=== PATIENT | male | born 1965 | race Caucasian/White ===

== ENCOUNTER → 2020-03-10 | Outpatient (CLI) | payer BC, SELFPAY ==
--- NOTE | 2020-03-10 16:55 | CT_ITS ---
STUDY: CT MAXILLOFACIAL SINUSES REASON FOR EXAM: Male, 55 years old. NASAL POLYPS, SINUSITIS RADIATION DOSAGE (If Supplied By Facility): CTDIvol = ( 33.06 ) mGy, DLP = ( 809.06 ) mGycm TECHNIQUE: The patient was scanned in a multi detector CT scanner. High resolution axial imaging was performed without the administration of intravenous contrast material. Sagittal and coronal images were reconstructed. Individualized dose optimization techniques were used for this CT. COMPARISON: None. FINDINGS: FRONTAL SINUSES: There is mildly coastal thickening of the left and right frontal sinuses. ETHMOIDAL SINUSES: There is mucosal thickening and opacification of multiple ethmoid air cells bilaterally. MAXILLARY SINUSES: There is severe mucosal thickening of the left and right maxillary sinuses. SPHENOIDAL SINUSES: There is near-complete opacification of the left sphenoid sinus. A dominant right sphenoid sinus demonstrates moderate mucosal thickening. There is patency of the bilateral maxillary infundibuli with normal uncinate processes, ethmoid bullae, and hiatus semilunaris. There is nasal septal deviation toward the left. The majority of the left middle nasal turbinate is missing. There is mucosal thickening of the superior nasal cavity. The visualized osseous structures are normal. The visualized bilateral orbital contents are normal. CT/Sinus/Facial Bone IMPRESSION: Severe chronic pansinusitis. Nasal septal deviation toward the left. The majority of the left middle nasal turbinate is missing. There is mucosal thickening of the superior nasal cavity which may represent rhinitis versus nasal polyposis. Electronically Signed: Wilfrid Nye MD at 19:32 EDT , Service support ,
== END | disposition home or self-care (01) ==
PROVIDERS: PCP Student in an Organized Health Care Education/Training Program; Referring Provider Otolaryngology; Visit Provider Otolaryngology
DX: J33.9 Nasal polyp, unspecified (principal)
CPT/HCPCS: 70486

== ENCOUNTER 2021-09-15 20:27 | Emergency (ER) | payer BC, SELFPAY ==
[2021-09-15 20:27] VITALS: BP 176/78; PULSE 84; RESP 18; TEMP 36.9; O2SAT 94; BMI 36.9
[2021-09-15 23:10] VITALS: BP 152/72; PULSE 81; RESP 12; O2SAT 100
[2021-09-15 23:15] VITALS: BP 152/72; PULSE 81; RESP 12; TEMP 36.2; O2SAT 100
--- NOTE | 2021-09-15 23:27 | VDLE_ITS ---
Reason For Study: Swelling RIGHT LEFT CFV is compressible, spontaneous, phasic, GSV is normal. competent and demonstrates normal CFV is compressible, spontaneous, phasic, augmentation. competent, and demonstrates normal Procedure augmentation. This is a venous duplex using B-mode, color FV is compressible, spontaneous, phasic, flow and spectral Doppler. competent and demonstrates normal Exam performed portable in ED. augmentation. A preliminary report was called and/or faxed POP V is compressible, spontaneous, phasic, to [facility]. competent and demonstrates normal augmentation. T/P Trunk is compressible. PTV is compressible. LT PerV is compressible. VL/Venous Duplex US, Unilateral Interpretation Summary There is no evidence of left lower extremity deep vein thrombosis. Left great s aphenous vein appears patent and compressible segmentally. Ordering Physician: Aleksey Mills Referring Physician: Ty Chairez Performed By: Vannessa Jimenez RVT
--- NOTE | 2021-09-15 23:27 | ED.VIS.LOWEX ---
HPI <Dr. Aleksey Mills MD - Last Filed: 09/16/21 07:00> History of Present Illness Chief Complaint: Lower Extremity Injury Informant: patient Onset/Context/Timing Onset: Weeks (2) Context: Gradual Onset Timing: Continuous Quality of Pain: - (tight from swelling) Location: LLE Current Severity: Mild Maximum Severity: Mild Worsened by: nothing Relieved by: nothing including cephalexin he has been on for 6d Associated Symptoms Associated Symptoms: Negative for Parasthesia, Weakness and Loss of Funtion Narrative Narrative: Patient presents with worsening swelling and redness in his left lower leg that has been progressively worsening for the past 2 weeks, worse in the past week. Just over 1 week ago he saw a nurse practitioner in his doctor's office who started him on cephalexin. No testing has been performed yet. He denies any chest pain or shortness of breath, no fevers or chills or any other systemic symptoms. States other than the tightness in just mukul swelling in his leg, he feels fine overall. Since starting the antibiotic in the last week, he has since started getting a rash in the medial aspect of the left lower leg redness that has been seeping some clear fluid and is nonpainful. No recent long travel or immobilization/hospitalization/surgery. He had a screening colonoscopy, but it was after this already started. He denies any wounds prior to the onset of the swelling/redness, or obvious nidus for infection or injury. [facility] <Dr. Aleksey Mills MD - Last Filed: 09/16/21 07:00> [facility] Medical History Hypertension Home Medications cephalexin 500 mg PO TID 09/15/21 [History Last Taken Unknown] hydrochlorothiazide 12.5 mg PO DAILY 09/15/21 [History Last Taken Unknown] lisinopril 10 mg PO DAILY 09/15/21 [History Last Taken Unknown] sulfamethoxazole-trimethoprim [Bactrim DS] 1 tab PO BID #20 tab 09/16/21 [Rx Last Taken Unknown] Allergy/AdvReac Type Severity Reaction Status Date / Time No Known Allergies Allergy Verified 09/15/21 23:09 Social History Smoking Status: Unknown if ever smoked ROS <Dr. Aleksey Mills MD - Last Filed: 09/16/21 07:00> ROS ED Constitutional Constitutional ED: Denies chills or fever(s) Musculoskeletal Musculoskeletal: Reports extremity pain; Denies neck pain Integumentary Reports as per HPI, erythema and wounds; Denies Abrasions or rash Neurologic Neurologic: Denies paresthesias or weakness EXAM <Dr. Aleksey Mills MD - Last Filed: 09/16/21 07:00> Physical Exam Const Vital Signs: 09/15/21 20:27 09/15/21 23:10 09/15/21 23:15 Temperature 98.5 F 97.1 F L Temperature Source Oral Temporal Pulse Rate 84 81 81 Respiratory Rate 18 12 12 Blood Pressure 176/78 H 152/72 H 152/72 H Blood Pressure Mean 110 98 98 Pulse Ox 94 100 100 Oxygen Delivery Method Room Air Room Air Room Air 09/16/21 00:00 09/16/21 01:22 09/16/21 06:09 Temperature 98 F Temperature Source Temporal Pulse Rate 84 80 Respiratory Rate 16 16 Blood Pressure 130/69 H 126/62 H 116/69 Blood Pressure Mean 89 83 84 Pulse Ox 98 99 Oxygen Delivery Method Room Air Room Air Positive well nourished and well developed General Appearance ED: well developed and NAD Neck full ROM and supple Back/Spine normal ROM and normal to inspection Extremity Extremity Narrative: Very swollen left lower leg, also erythematous. It is nontender. There is a superficial broad-based wound approximately 8 cm in diameter at the medial aspect of the left mid lower leg where there is some bulla formation, and the couple ruptured bullae with epidermal sloughing and clear fluid seeping from these areas, none of which is tender. Well-perfused distally. No palpable cords. Possible varicose veins noted but it does not appear to be bad. No problems moving the ankle and knee, no abnormal skin at the knee or proximal, the erythema distal to this is stocking glove in distribution, and does not affect the foot. Lower leg compartments are distended but soft. The right lower leg is normal. Neuro oriented x3, no focal motor deficits and no sensory deficits noted Sensorium / Orientation: alert Psych mental status grossly normal and thought process normal Skin Skin Narrative: See extremity exam above with regards to the left lower leg. No other rashes. <DO Raghav Anaya Last Filed: 09/16/21 09:02> Physical Exam Const Vital Signs: 09/15/21 20:27 09/15/21 23:10 09/15/21 23:15 Temperature 98.5 F 97.1 F L Temperature Source Oral Temporal Pulse Rate 84 81 81 Respiratory Rate 18 12 12 Blood Pressure 176/78 H 152/72 H 152/72 H Blood Pressure Mean 110 98 98 Pulse Ox 94 100 100 Oxygen Delivery Method Room Air Room Air Room Air 09/16/21 00:00 09/16/21 01:22 09/16/21 06:09 Temperature 98 F Temperature Source Temporal Pulse Rate 84 80 Respiratory Rate 16 16 Blood Pressure 130/69 H 126/62 H 116/69 Blood Pressure Mean 89 83 84 Pulse Ox 98 99 Oxygen Delivery Method Room Air Room Air MDM <Dr. Aleksey Mills MD - Last Filed: 09/16/21 07:00> MDM MDM Narrative Medical decision making narrative: Soon as I evaluated patient I saw to obtain a duplex Doppler ultrasound of the left lower extremity, however they are no longer performing this test today and it is not currently available. Therefore, a D-dimer was added onto his basic labs as well as empiric antibiotics. I think the differential does include a DVT as well as cellulitis, however the appearance of the skin is more likely to be cellulitis, so I will start him on vancomycin empirically as a possible failure of outpatient treatment, in addition to giving him an injection of Lovenox for empiric coverage for venous thromboembolism. Results show very elevated D-dimer suspicious for DVT. He does not have a leukocytosis although that does not rule out cellulitis, he really is not having any significant pain or tenderness. Therefore my thoughts are that if he does not have an acute DVT, he should be admitted for IV antibiotics and failure of outpatient therapy, however if he does have a DVT he can probably be sent home on anticoagulant to follow-up closely. We do not offer this test throughout the shift mechanic. If he got the study as an outpatient, he would need to return to the ER regardless of the results, so I advised that he sleep here in the ED all night under observation until ultrasound was available in the morning, and then he would not have to return for second visit he was amenable to that. Lab Data Labs: Laboratory Results - last 24 hr 09/15/21 09/15/2121 23:30 23:30 23:30 WBC 6.1 RBC 3.84 L Hgb 12.8 L Hct 36.1 L MCV 94.0 MCH 33.3 H MCHC 35.5 RDW Std Deviation 37.2 RDW Coeff of Magalie 10.9 L Plt Count 368 MPV 8.5 Immature Gran % (Auto) 4.600 H Neut % (Auto) 56.9 Lymph % (Auto) 24.4 Cataño % (Auto) 10.8 H Eos % (Auto) 2.5 Baso % (Auto) 0.8 Absolute Neuts (auto) 3.5 Absolute Lymphs (auto) 1.49 Nucleated RBC % 0 D-Dimer Quant (PE/DVT) 10.38 H* Sodium 126 L Potassium 3.8 Chloride 87 L Carbon Dioxide 29.0 Anion Gap 10 BUN 11 Creatinine 0.98 Estim Creat Clear Calc 91.28 Est GFR (MDRD) Af Amer 101 Est GFR (MDRD) Non-Af 83 BUN/Creatinine Ratio 11.2 Glucose 105 Calcium 9.0 <Dr. Soren Mora, DO - Last Filed: 09/16/21 09:02> [facility] MDM Narrative Medical decision making narrative: Patient signed out to me for follow-up on duplex of the left lower extremity given the swelling in the left calf. There is some erythema medially with some dry scaling skin. There is no lymphangitic streaking. Patient has had no systemic signs or symptoms. He has been on Keflex 3 times daily from his primary care physician and notes that it is not improving. Ultimately his blood work does not show that he has an elevated white blood cell count. He does not have a left shift. His BMP is abnormal in the sense that he has a low sodium and a low chloride but he is not having any symptoms of hyponatremia. Discussed with Dr. Nathan as the patient likely has cellulitis of the lower extremity and is failed outpatient antibiotics however he declines admission. He recommends placing the patient on Bactrim and having him quit his hydrochlorothiazide as this is likely source of his low sodium and chloride. I spoke with Dr. Chairez his primary care physician who agreed that the patient should finish his Keflex and take Bactrim. Since his DVT study is normal he does not need to be anticoagulated. He made an appointment for him to be followed up on 09/23/2021 at 10:30 AM. Patient was previously given a dose of IV vancomycin in the emergency room. Patient was informed he will need to make his appointment. Patient is amenable to this discharge plan. He is given return precautions. Impression: 1. Right lower extremity cellulitis Lab Data Attestation: I reviewed the patient's lab results. Labs: Laboratory Results - last 24 hr 09/15/21 09/15/21 09/15/21 23:30 23:30 23:30 WBC 6.1 RBC 3.84 L Hgb 12.8 L Hct 36.1 L MCV 94.0 MCH 33.3 H MCHC 35.5 RDW Std Deviation 37.2 RDW Coeff of Magalie 10.9 L Plt Count 368 MPV 8.5 Immature Gran % (Auto) 4.600 H Neut % (Auto) 56.9 Lymph % (Auto) 24.4 Cataño % (Auto) 10.8 H Eos % (Auto) 2.5 Baso % (Auto) 0.8 Absolute Neuts (auto) 3.5 Absolute Lymphs (auto) 1.49 Nucleated RBC % 0 D-Dimer Quant (PE/DVT) 10.38 H* Sodium 126 L Potassium 3.8 Chloride 87 L Carbon Dioxide 29.0 Anion Gap 10 BUN 11 Creatinine 0.98 Estim Creat Clear Calc 91.28 Est GFR (MDRD) Af Amer 101 Est GFR (MDRD) Non-Af 83 BUN/Creatinine Ratio 11.2 Glucose 105 Calcium 9.0 Discharge Plan Triage Chief Complaint: Lower Extremity Injury ED Provider: Aleksey Mills Dx/Rx/DC Orders Instructions: ED Cellulitis Prescriptions: New sulfamethoxazole-trimethoprim [Bactrim DS] 800-160 mg tablet 1 tab PO BID Qty: 20 RF: 0 No Action cephalexin 500 mg capsule 500 mg PO TID RF: 0 lisinopril 10 mg tablet 10 mg PO DAILY RF: 0 hydrochlorothiazide 12.5 mg tablet 12.5 mg PO DAILY RF: 0 Primary Care Provider: Ty Chariez Referrals: Ty Chairez DO [Primary Care Provider] - Activity Restrictions/Additional Instructions: I spoke with Dr. Chairez who recommended putting him on Bactrim twice a day. He wants you to call his office and set up an appointment for 10:30 AM on 09/23/2021. He recommends that you discontinue your hydrochlorothiazide given your low sodium. Disposition Disposition: Home, Self Care
[2021-09-15 23:50] LABS: Absolute Lymphocyte Count 1.49 X10^3/uL (0.83-4.51); Absolute Neutrophil Count 3.5 X10^3/uL (2.0-7.7); Basophil# 0.05 X10^3/uL; Basophil% 0.8 % (0-1); Eosinophil# 0.15 X10^3/uL; Eosinophils% 2.5 % (0-5); Hematocrit 36.1 % (40-54); Hemoglobin 12.8 g/dL (13.0-16.5); Lymphocyte # 1.49 X10^3/ul (0.83-4.51); Lymphocyte % 24.4 % (19-41); Mean Corp Hgb Conc 35.5 g/dL (32-36); Mean Corpuscular Hgb 33.3 pg (27.0-32.0); Mean Platelet Vol. 8.5 fl (6.2-12.0); Monocyte# 0.66 X10^3/uL; Monocyte% 10.8 % (0-10); NRBC Flagged by Analyzer 0 % (0-5); Neutrophil # 3.47 X10^3/uL (2.7-7.7); Neutrophil % 56.9 % (47-70); Platelet Count 368 K/mm3 (150-450); RBC Distribution Width CV 10.9 % (11.6-14.6); RBC Distribution Width SD 37.2 fl (35.1-43.9); Red Blood Count 3.84 M/mm3 (4.6-6.2); White Blood Count 6.1 K/mm3 (4.4-11.0)
[2021-09-16] VITALS: BP 130/69; PULSE 84; RESP 16; TEMP 36.6; O2SAT 98
[2021-09-16] MEDS: Enoxaparin 120 MG/0.8 ML Syringe SC (00:03)
[2021-09-16 00:10] LABS: Anion Gap 10 (5-15); BUN 11 mg/dL (7-18); BUN/Creat Ratio 11.2 RATIO (10-20); Chloride 87 mmol/L (98-107); Creatinine, Serum 0.98 mg/dL (0.70-1.30); EST Glomerular Filtration Rate 83 mL/min (>60); Est Glom Filt Rate - Afr Amer 101 mL/min (>60); Estimated Creatinine Clearance 91.28 ml/min; Glucose 105 mg/dL (74-106); Potassium 3.8 mmol/L (3.5-5.1); Sodium Level 126 mmol/L (136-145)
[2021-09-16 00:26] LABS: D-Dimer Quantitative (DVT/PE) 10.38 FEU/ug/m (0.27-0.49)
[2021-09-16 01:22] VITALS: BP 126/62
[2021-09-16 06:09] VITALS: BP 116/69; PULSE 80; RESP 16; O2SAT 99
[2021-09-16 09:04] VITALS: BP 134/77; PULSE 62; RESP 15; O2SAT 98
== END 2021-09-16 09:06 | disposition home or self-care (01) ==
PROVIDERS: Emergency Provider Emergency Medicine; PCP Student in an Organized Health Care Education/Training Program
DX: L03.115 Cellulitis of right lower limb (principal); I10 Essential (primary) hypertension; Z79.899 Other long term (current) drug therapy
CPT/HCPCS: 80048; 85025; 85379; 93971; 96365; 96366; 96372; 99283; J7040; J7050; A4216

== ENCOUNTER 2024-02-15 16:41 | Inpatient (IN) | payer BC, SELFPAY ==
[2024-02-15] VITALS (27 sets, daily range): BP systolic 140–200; BP diastolic 78–102; PULSE 58–98; RESP 12–23; TEMP 36.3–36.6; O2SAT 96–99; BMI 35.6
--- NOTE | 2024-02-15 18:14 | ED.VIS.CHEST ---
HPI History of Present Illness Chief Complaint: Back Detail of Chief Complaint: 10 episodes of intrascapular muscle burning sensation with radiation to the Informant: patient Onset/Context/Timing Onset: Days (First episode Sunday. He had a total of 10 episodes) Activity at onset: sudden and light activity (After walking approximately 150 steps or approximately 150 yards.) Timing: Intermittent Quality: Positive for Burning Location: - (Intrascapular radiates anteriorly to his neck and jaw bilaterally) Current Severity: Gone Maximum Severity: Moderate Worsened By: Exertion Relieved By: Rest (Is gone after 10 minutes) Associated Symptoms: Negative for Nausea, Vomiting, Diaphoresis, Dyspnea, Cough, Fever, Lightheadedness, Acid Reflux or Palpitations Narrative Narrative: Patient is a 59-year-old male. He has history of hypertension. Since Sunday he is had 10 episodes of discomfort described as a burning sensation as if he was doing a bench press between his shoulder blades and achy muscles that radiates to his neck anteriorly and jaw bilaterally. There is no associated symptoms. This last for approximately 10 minutes. He states he sits after he developed the pain and is gone after 10 minutes. He has no associated symptoms. Father had triple bypass surgery at the age of 41. He is on hydrochlorothiazide/lisinopril. He reports compliance with his medication. There is no history of GERD or hiatal hernia. He denies black or maroon stool. He denies history of VTE. He has no risk factors for VTE. Denies leg pain, swelling discoloration. He denies symptoms of claudication. Prior Similar Symptoms: No CVD Risk Factors: Positive for Hypertension and Family History 1' </=55; Negative for Diabetes, Hypercholesterolemia or Smoking PE Risk Factors: Negative for Recent Travel/Surgery, Recent Immobilization, Prior DVT or PE, Cancer or OCP + Smoking + >/=35 TAD Risk Factors: Positive for Hypertension; Negative for Marfan's Syndrome or Family History [facility] Medical History Hypertension Home Medications cyanocobalamin (vitamin B-12) 1,000 mcg tablet (Vitamin B-12) 2,000 mcg PO DAILY 02/15/24 [History Last Taken Unknown] garlic 1,000 mg capsule 2,000 mg PO DAILY 02/15/24 [History Last Taken Unknown] losartan 50 mg tablet 50 mg PO DAILY 02/15/24 [History Last Taken Unknown] omega 2-cyx-kkk-fish oil 1,200 mg (144 mg-216 mg) capsule (Fish Oil) 1 cap PO DAILY 02/15/24 [History Last Taken Unknown] phytosterol 300 mg-pantethine 100 mg capsule (CholestOff Complete) 3 cap PO DAILY 02/15/24 [History Last Taken Unknown] turmeric 400 mg capsule 800 mg PO DAILY 02/15/24 [History Last Taken Unknown] Allergy/AdvReac Type Severity Reaction Status Date / Time No Known Allergies Allergy Verified 02/15/24 16:52 Social History Smoking Status: Unknown if ever smoked ROS ROS ED Constitutional Constitutional ED: Denies chills, fever(s), subjective or sweats Eyes Eyes: Reports none ENT ENT ED: Denies rhinorrhea or sore throat Cardiovascular Cardiovascular: Reports as per HPI; Denies orthopnea or paroxysmal nocturnal dyspnea Respiratory/Chest Respiratory/Chest: Denies cough, dyspnea, dyspnea on exertion, orthopnea or paroxysmal nocturnal dyspnea Gastrointestinal Gastrointestinal: Denies abdominal pain, constipation, diarrhea, melena, nausea or vomiting Musculoskeletal Musculoskeletal: Reports back pain; Denies arthralgias, myalgias or neck pain Integumentary Denies rash Neurologic Neurologic: Denies headache(s) or paresthesias Endocrine Endocrinology: Denies cold intolerance or heat intolerance Hematologic/Lymphatic Hematologic/Lymphatic: Denies easy bleeding or easy bruising EXAM Physical Exam Const Vital Signs: 02/15/24 16:42 02/15/24 16:42 02/15/24 18:28 Temperature 98 F Temperature Source Temporal Pulse Rate 90 98 Respiratory Rate 14 16 Respiratory Effort Respiratory Pattern Blood Pressure 200/99 H 192/87 H Blood Pressure Mean 132 122 Pulse Ox 98 98 Oxygen Delivery Method Room Air Room Air Room Air 02/15/24 18:31 02/15/24 18:42 02/15/24 19:09 Temperature Temperature Source Pulse Rate 78 79 Respiratory Rate 16 16 Respiratory Effort Normal Respiratory Pattern Normal Blood Pressure 186/89 H 196/96 H Blood Pressure Mean 121 129 Pulse Ox 98 99 Oxygen Delivery Method Room Air Room Air 02/15/24 19:26 02/15/24 19:10 02/15/24 19:15 Temperature Temperature Source Pulse Rate 76 77 78 Respiratory Rate 17 22 H 15 Respiratory Effort Respiratory Pattern Blood Pressure 200/82 H Blood Pressure Mean 121 Pulse Ox 99 98 97 Oxygen Delivery Method Room Air 02/15/24 19:25 02/15/24 19:30 02/15/24 19:34 Temperature Temperature Source Pulse Rate 75 78 70 Respiratory Rate 16 15 17 Respiratory Effort Respiratory Pattern Blood Pressure 200/82 H 189/86 H 170/86 H Blood Pressure Mean 112 111 111 Pulse Ox 97 96 97 Oxygen Delivery Method Room Air Room Air 02/15/24 19:45 02/15/24 20:00 02/15/24 20:15 Temperature Temperature Source Pulse Rate 68 75 77 Respiratory Rate 17 14 14 Respiratory Effort Respiratory Pattern Blood Pressure 167/85 H Blood Pressure Mean 109 Pulse Ox 96 98 98 Oxygen Delivery Method Room Air 02/15/24 20:30 02/15/24 20:41 02/15/24 20:45 Temperature Temperature Source Pulse Rate 64 73 63 Respiratory Rate 18 14 14 Respiratory Effort Respiratory Pattern Blood Pressure 173/86 H 165/94 H Blood Pressure Mean 109 113 Pulse Ox 96 97 97 Oxygen Delivery Method Room Air 02/15/24 21:00 02/15/24 21:15 Temperature Temperature Source Pulse Rate 65 61 Respiratory Rate 14 14 Respiratory Effort Respiratory Pattern Blood Pressure 164/92 H 143/82 H Blood Pressure Mean 112 100 Pulse Ox 97 96 Oxygen Delivery Method Room Air Room Air Blood pressure is elevated. Patient states he did take his blood pressure today. Positive well nourished and well developed Constitutional Narrative: BMI is 35.7. General Appearance ED: well developed and NAD; Negative for pallor HEENT Reports moist mucous membranes normocephalic and atraumatic Eyes PERRL and EOMs intact bilaterally General Eye ED: Negative for pale conjunctiva or scleral icterus Neck no lymphadenopathy, supple and no JVD Resp normal respiratory effort and clear to auscultation bilaterally Cardio regular rate, regular rhythm, S1 normal heart sound, S2 normal heart sound and no murmurs GI normal to inspection, nondistended, normoactive bowel sounds, soft to palpation, non-tender and non-distended Back/Spine no CVA tenderness and no thoracic nor lumbar tenderness Extremity normal to inspection Extremity Narrative: There is no asymmetry, swelling, discoloration, leg vein distention, palpable cords or tenderness along the distribution of the deep venous system. General Extremety ED: Negative for edema or pulses abnormal General Extremity: Negative for edema or pulses abnormal Neuro oriented x3 and CN's II-XII intact bilaterally Sensorium / Orientation: awake and alert Psych mental status grossly normal Skin no rashes or lesions noted and no wounds General Skin Exam: Negative for jaundice or pallor Heart Score History: Moderately Suspicious ECG: Significant ST-Depression Age: >45 - <65 years Risk Factors: 1 or 2 Risk Factors Troponin: </= Normal Limit Score: 5 MDM MDM MDM Narrative Medical decision making narrative: Concerned that patient's back pain with patient to the neck that comes on with walking more than 100 feet is due to cardiac angina. Will obtain EKG, chest x-ray and appropriate blood work including troponin and 2-hour troponin. Will monitor blood pressure since is elevated. EKG is not normal. There is no prior EKG for comparison. Doubt this is a aortic dissection since it comes on with activity and goes away with rest. Does not describes a ripping or tearing pain. This could represent strain due to elevated blood pressure since his pressure is high. Lab Data Attestation: I reviewed the patient's lab results. Lab results narrative: CBC reveals elevated MCV otherwise unremarkable. Basic metabolic panel reveals slight elevation of glucose of 110 with normal CO2 anion gap. First troponin is 38. Labs: Laboratory Results - last 24 hr 02/15/24 02/15/24 02/15/24 18:27 18:27 18:59 WBC Cancelled 8.3 Corrected WBC Cancelled RBC Cancelled 4.56 L Hgb Cancelled 15.0 Hct Cancelled 43.9 MCV Cancelled 96.3 H MCH Cancelled 32.9 H MCHC Cancelled 34.2 RDW Std Deviation Cancelled 40.2 RDW Coeff of Magalie Cancelled 11.4 L Plt Count Cancelled 204 MPV Cancelled 8.7 Immature Gran % (Auto) Cancelled 0.400 Neut % (Auto) Cancelled 64.8 Lymph % (Auto) Cancelled 22.3 [place] % (Auto) Cancelled 7.9 Eos % (Auto) Cancelled 4.1 Baso % (Auto) Cancelled 0.5 Absolute Neuts (auto) Cancelled 5.4 Absolute Lymphs (auto) Cancelled 1.84 Total Counted Cancelled Neutrophils % (Manual) Cancelled Band Neutrophils % Cancelled Lymphocytes % (Manual) Cancelled Monocytes % (Manual) Cancelled Eosinophils % (Manual) Cancelled Basophils % (Manual) Cancelled Metamyelocytes % Cancelled Myelocytes % Cancelled Promyelocytes % Cancelled Blast Cells % Cancelled Plasma Cell % (Manual) Cancelled Other Cells % Cancelled Nucleated RBC % Cancelled 0 Nucleated RBCs/100 WBC Cancelled Differential Comment Cancelled Diff Path Review Cancelled Hypersegmented Neuts Cancelled Atypical Lymphocytes Cancelled Reactive Lymphocytes Cancelled Smudge Cells Cancelled Toxic Granulation Cancelled Toxic Vacuolation Cancelled Dohle Bodies Cancelled Brett Rods Cancelled Platelet Estimate Cancelled Plt Morphology Comment Cancelled RBC Morphology Cancelled Cancelled Polychromasia Cancelled Hypochromasia Cancelled Basophilic Stippling Cancelled Anisocytosis Cancelled Microcytosis Cancelled Macrocytosis Cancelled Spherocytes Cancelled Sickle Cells Cancelled Target Cells Cancelled Tear Drop Cells Cancelled Ovalocytes Cancelled Stomatocytes Cancelled [place] Bodies Cancelled Ras Cells Cancelled Bite Cells Cancelled Crenated Cell Cancelled Acanthocytes (Spur) Cancelled Rouleaux Cancelled Schistocytes Cancelled Sodium 134 L Potassium 4.8 Chloride 101 Carbon Dioxide 27.0 Anion Gap 6 BUN 12 Creatinine 1.14 Estim Creat Clear Calc 91.93 Est GFR (MDRD) Af Amer 84 Est GFR (MDRD) Non-Af 70 BUN/Creatinine Ratio 10.5 Glucose 110 H Calcium 9.5 Troponin I High Sens 38 02/15/24 20:40 WBC Corrected WBC RBC Hgb Hct MCV MCH MCHC RDW Std Deviation RDW Coeff of Magalie Plt Count MPV Immature Gran % (Auto) Neut % (Auto) Lymph % (Auto) [place] % (Auto) Eos % (Auto) Baso % (Auto) Absolute Neuts (auto) Absolute Lymphs (auto) Total Counted Neutrophils % (Manual) Band Neutrophils % Lymphocytes % (Manual) Monocytes % (Manual) Eosinophils % (Manual) Basophils % (Manual) Metamyelocytes % Myelocytes % Promyelocytes % Blast Cells % Plasma Cell % (Manual) Other Cells % Nucleated RBC % Nucleated RBCs/100 WBC Differential Comment Diff Path Review Hypersegmented Neuts Atypical Lymphocytes Reactive Lymphocytes Smudge Cells Toxic Granulation Toxic Vacuolation Dohle Bodies Brett Rods Platelet Estimate Plt Morphology Comment RBC Morphology Polychromasia Hypochromasia Basophilic Stippling Anisocytosis Microcytosis Macrocytosis Spherocytes Sickle Cells Target Cells Tear Drop Cells Ovalocytes Stomatocytes [place] Bodies Ras Cells Bite Cells Crenated Cell Acanthocytes (Spur) Rouleaux Schistocytes Sodium Potassium Chloride Carbon Dioxide Anion Gap BUN Creatinine Estim Creat Clear Calc Est GFR (MDRD) Af Amer Est GFR (MDRD) Non-Af BUN/Creatinine Ratio Glucose Calcium Troponin I High Sens 66 Second troponin is elevated at 66. Radiography Chest X-Ray - ED: 2 View and Read by ED Physician (There is no widening of the mediastinum. [place] is normal. Cardiac silhouette and size normal. Lung parenchyma is normal. [place] structures are unremarkable. This is independent reviewed interpreted by me at 1911.) Diagnostic Testing: Clinical Impression(s) from Imaging Studies Chest X-Ray 02/15/24 18:45 IMPRESSION: Normal x-ray examination of the chest. Electronically Signed: Francis Orta MD at 19:21 EDT , EKG Initial EKG: Attestation: I personally reviewed and interpreted this EKG as follows: Interpretation: Sinus Rhythm (Rate is 100. [place] to the left. There is ST depression noted anterolateral leads. ND interval is 106 ms per cures duration 102 ms. QT duration 150 ms.) Management Discussion w/another healthcare provider: Hospitalist (Case discussed with Dr. Murray. Explained that patient's symptoms are consistent with exertional angina. Patient was made observation to PCU.) Discharge Plan Triage Chief Complaint: Back ED Provider: Dominik Stubbs Dx/Rx/DC Orders Clinical Impression: Exertional angina, Hypertension Prescriptions: No Action losartan 50 mg tablet 50 mg PO DAILY omega 2-vam-aej-fish oil [Fish Oil] 1,200 (144-216) mg capsule 1 cap PO DAILY garlic 1,000 mg capsule 2,000 mg PO DAILY turmeric 400 mg capsule 800 mg PO DAILY cyanocobalamin (vitamin B-12) [Vitamin B-12] 1,000 mcg tablet 2,000 mcg PO DAILY CholestOff Complete 300-100 mg capsule 3 cap PO DAILY Primary Care Provider: Ty Chairez Referrals: Ty Chairez DO [Primary Care Provider] - Disposition Disposition: Acute Care Hospital [facility]
--- NOTE | 2024-02-15 18:45 | RAD_ITS ---
STUDY: X-RAY CHEST REASON FOR EXAM: Male, 59 years old. chest pain TECHNIQUE: PA and lateral views of the chest. COMPARISON: None. FINDINGS: The lungs are clear and expanded. There is no demonstrated pleural abnormality. Normal size heart. Normal mediastinum and mary. Normal visualized pulmonary arteries. Normal visualized aortic arch and descending thoracic aorta. Normal visualized thoracic spine. Normal visualized ribs, clavicles, and shoulders. There is no demonstrated abnormality of the visualized soft tissue structures of the upper abdomen. RAD/Chest PA and Lateral IMPRESSION: Normal x-ray examination of the chest. Electronically Signed: Francis Orta MD at 19:21 EDT ,
[2024-02-15 18:57] LABS: Anion Gap 6 (5-15); BUN 12 mg/dL (7-18); BUN/Creat Ratio 10.5 RATIO (10-20); Calcium,Total 9.5 mg/dL (8.5-10.1); Chloride 101 mmol/L (98-107); Creatinine, Serum 1.14 mg/dL (0.70-1.30); EST Glomerular Filtration Rate 70 mL/min (>60); Est Glom Filt Rate - Afr Amer 84 mL/min (>60); Estimated Creatinine Clearance 91.93 ml/min; Glucose 110 mg/dL (74-106); Potassium 4.8 mmol/L (3.5-5.1); Sodium Level 134 mmol/L (136-145); Troponin-I HS (w/2H Reflex) 38 pg/mL (3.0-78.0)
[2024-02-15 19:12] LABS: Absolute Lymphocyte Count 1.84 X10^3/uL (0.83-4.51); Absolute Neutrophil Count 5.4 X10^3/uL (2.0-7.7); Basophil# 0.04 X10^3/uL; Basophil% 0.5 % (0-1); Eosinophil# 0.34 X10^3/uL; Eosinophils% 4.1 % (0-5); Hematocrit 43.9 % (40-54); Lymphocyte # 1.84 X10^3/ul (0.83-4.51); Lymphocyte % 22.3 % (19-41); Mean Corp Hgb Conc 34.2 g/dL (32-36); Mean Corpuscular Hgb 32.9 pg (27.0-32.0); Mean Corpuscular Volume 96.3 fL (80-94); Mean Platelet Vol. 8.7 fl (6.2-12.0); Monocyte# 0.65 X10^3/uL; Monocyte% 7.9 % (0-10); NRBC Flagged by Analyzer 0 % (0-5); Neutrophil # 5.36 X10^3/uL (2.7-7.7); Neutrophil % 64.8 % (47-70); Platelet Count 204 K/mm3 (150-450); RBC Distribution Width CV 11.4 % (11.6-14.6); RBC Distribution Width SD 40.2 fl (35.1-43.9); Red Blood Count 4.56 M/mm3 (4.6-6.2); White Blood Count 8.3 K/mm3 (4.4-11.0)
[2024-02-15] MEDS: Labetalol (Prefilled) 20 MG/4 ML 10 MG IV (19:26)
[2024-02-15 20:31] LABS: Reflex Troponin-HS? (from REC) Y
[2024-02-15 21:07] LABS: Troponin-I HS 66 pg/mL (3.0-78.0)
--- NOTE | 2024-02-15 21:54 | PCM.HP.STD ---
[facility] - General General Date of Admission: 02/15/24 Date of Service: 02/15/24 Chief Complaint: Back Pain Radiating into Neck and Jaw with Exertion. HPI Narrative DON OLIVARES, is a 59 M with a past medical history of essential hypertension, obesity; with BMI of 35.7 this admission, positive family history of premature CAD in his father at age 41; with CABG x 3 and OA who presents to [facility] ER complaining of back pain radiating into his jaw with exertion. Mr. Olivares reports his symptoms began approximately 5 days prior to admission with the abrupt-onset of an intermittent burning sensation between his shoulder blades radiating into both his neck and jaw bilaterally that since that time has been consistently triggered by walking ~150 paces. Then after ~10 minutes of rest his symptoms completely resolve - with at least ten discrete episodes. He denies similar previous episodes and he states he has been taking his Lisinopril/HCTZ as prescribed. He goes on to deny associated fever, chills, nausea, vomiting, diaphoresis, palpitations, orthopnea, leg swelling, recent travel, recent trauma or blood in stools. In the ER he was noted to have an initial highly elevated blood pressure of 200/82 mmHg consistent with Hypertensive Urgency complicated by a burning pain radiating into his neck and jaw bilaterally with exertion that is concerning for an 'anginal equivalent' and he was then admitted to the CDU under observation status for a stay that is expected to be less than 2 midnights. [facility] Medical History Hypertension Home Medications cyanocobalamin (vitamin B-12) 1,000 mcg tablet (Vitamin B-12) 2,000 mcg PO DAILY 02/15/24 [History Last Taken Unknown] garlic 1,000 mg capsule 2,000 mg PO DAILY 02/15/24 [History Last Taken Unknown] losartan 50 mg tablet 50 mg PO DAILY 02/15/24 [History Last Taken Unknown] omega 8-vhc-caa-fish oil 1,200 mg (144 mg-216 mg) capsule (Fish Oil) 1 cap PO DAILY 02/15/24 [History Last Taken Unknown] phytosterol 300 mg-pantethine 100 mg capsule (CholestOff Complete) 3 cap PO DAILY 02/15/24 [History Last Taken Unknown] turmeric 400 mg capsule 800 mg PO DAILY 02/15/24 [History Last Taken Unknown] Allergy/AdvReac Type Severity Reaction Status Date / Time No Known Allergies Allergy Verified 02/15/24 16:52 Family History (Updated 02/15/24 @ 23:56 by Ita Blake) Father FH: CABG (coronary artery bypass surgery) Social History (Updated 02/15/24 @ 23:57 by Ita Blake) household members: none service: No current occupational status: employed current occupation: [employer] Smoking Status: Unknown if ever smoked ROS ROS Narrative Review of systems: General: Patient denies fever or chills. HENT: Denies headache, denies stuffy nose, denies sore throat EYES: Denies changes in vision or discharge from eyes. Resp: Denies cough, denies shortness of breath Cardiac: Patient denies chest pain, palpitations, heart racing,orthopnea or PND. GI: Denies abdominal pain, denies changes in bowel, denies nausea or vomiting : Denies changes in urination Extremity: Denies swelling Musculoskeletal: Patient admits to back pain radiating from his shoulder blades into his jaw and arms bilaterally but denies arthralgias or myalgias. Neuro: Patient denies headache, paresthesias or focal neurologic weakness. Heme: Denies any bleeding or bruising Skin: Denies rashes Psychiatric: No complaints voiced related to uncontrolled depression or anxiety. Endocrine: No polyuria, polydipsia or polyphagia. The rest of the 14 point ROS was negative except for positives in HPI. Vital Signs Vital Signs Vital Signs: 02/15/24 16:42 02/15/24 16:42 02/15/24 18:28 Temperature 98 F Temperature Source Temporal Pulse Rate 90 98 Respiratory Rate 14 16 Respiratory Effort Respiratory Pattern Blood Pressure 200/99 H 192/87 H Blood Pressure Mean 132 122 Pulse Ox 98 98 Oxygen Delivery Method Room Air Room Air Room Air 02/15/24 18:31 02/15/24 18:42 02/15/24 19:09 Temperature Temperature Source Pulse Rate 78 79 Respiratory Rate 16 16 Respiratory Effort Normal Respiratory Pattern Normal Blood Pressure 186/89 H 196/96 H Blood Pressure Mean 121 129 Pulse Ox 98 99 Oxygen Delivery Method Room Air Room Air 02/15/24 19:26 02/15/24 19:10 02/15/24 19:15 Temperature Temperature Source Pulse Rate 76 77 78 Respiratory Rate 17 22 H 15 Respiratory Effort Respiratory Pattern Blood Pressure 200/82 H Blood Pressure Mean 121 Pulse Ox 99 98 97 Oxygen Delivery Method Room Air 02/15/24 19:25 02/15/24 19:30 02/15/24 19:34 Temperature Temperature Source Pulse Rate 75 78 70 Respiratory Rate 16 15 17 Respiratory Effort Respiratory Pattern Blood Pressure 200/82 H 189/86 H 170/86 H Blood Pressure Mean 112 111 111 Pulse Ox 97 96 97 Oxygen Delivery Method Room Air Room Air 02/15/24 19:45 02/15/24 20:00 02/15/24 20:15 Temperature Temperature Source Pulse Rate 68 75 77 Respiratory Rate 17 14 14 Respiratory Effort Respiratory Pattern Blood Pressure 167/85 H Blood Pressure Mean 109 Pulse Ox 96 98 98 Oxygen Delivery Method Room Air 02/15/24 20:30 02/15/24 20:41 02/15/24 20:45 Temperature Temperature Source Pulse Rate 64 73 63 Respiratory Rate 18 14 14 Respiratory Effort Respiratory Pattern Blood Pressure 173/86 H 165/94 H Blood Pressure Mean 109 113 Pulse Ox 96 97 97 Oxygen Delivery Method Room Air 02/15/24 21:00 02/15/24 21:15 Temperature Temperature Source Pulse Rate 65 61 Respiratory Rate 14 14 Respiratory Effort Respiratory Pattern Blood Pressure 164/92 H 143/82 H Blood Pressure Mean 112 100 Pulse Ox 97 96 Oxygen Delivery Method Room Air Room Air Weight Weight: 263 lb 3.711 oz Body Mass Index (BMI) 35.6 Physical Exam Const alert, oriented x3, no apparent distress, average body habitus and healthy appearing General Appearance: cooperative HEENT normocephalic, head/scalp atraumatic, hearing grossly normal bilaterally and moist oral mucous membranes Eyes PERRL and EOMs intact bilaterally Neck no lymphadenopathy and supple Resp normal respiratory effort, no retractions, no use of accessory muscles and clear to auscultation bilaterally Cardio regular rate and regular rhythm GI normal to inspection, nondistended, normoactive bowel sounds, soft to palpation, non-tender and non-distended GI Narrative: Obese. Extremity normal to inspection, full ROM and no clubbing, cyanosis or edema Skin Skin Narrative: Patient has no evidence of jaundice or rash. Neuro oriented x3, CN's II-XII intact bilaterally, moves all extremities and no focal motor deficits Sensorium / Orientation: awake, alert, oriented to person, oriented to place and oriented to time Speech: speech normal Motor Exam: strength 5/5 throughout Psych affect normal Results Medical Records Data Attestation: I reviewed the patient's medical records Lab / Micro Data Attestation: I reviewed the patient's lab results. 02/15/24 18:59 02/15/24 18:27 Labs: Laboratory Results - last 24 hr 02/15/24 18:27: WBC Cancelled, Corrected WBC Cancelled, RBC Cancelled, Hgb Cancelled, Hct Cancelled, MCV Cancelled, MCH Cancelled, MCHC Cancelled, RDW Std Deviation Cancelled, RDW Coeff of Magalie Cancelled, Plt Count Cancelled, MPV Cancelled, Immature Gran % (Auto) Cancelled, Neut % (Auto) Cancelled, Lymph % (Auto) Cancelled, [place] % (Auto) Cancelled, Eos % (Auto) Cancelled, Baso % (Auto) Cancelled, Absolute Neuts (auto) Cancelled, Absolute Lymphs (auto) Cancelled, Total Counted Cancelled, Neutrophils % (Manual) Cancelled, Band Neutrophils % Cancelled, Lymphocytes % (Manual) Cancelled, Monocytes % (Manual) Cancelled, Eosinophils % (Manual) Cancelled, Basophils % (Manual) Cancelled, Metamyelocytes % Cancelled, Myelocytes % Cancelled, Promyelocytes % Cancelled, Blast Cells % Cancelled, Plasma Cell % (Manual) Cancelled, Other Cells % Cancelled, Nucleated RBC % Cancelled, Nucleated RBCs/100 WBC Cancelled, Differential Comment Cancelled, Diff Path Review Cancelled, Hypersegmented Neuts Cancelled, Atypical Lymphocytes Cancelled, Reactive Lymphocytes Cancelled, Smudge Cells Cancelled, Toxic Granulation Cancelled, Toxic Vacuolation Cancelled, Dohle Bodies Cancelled, Brett Rods Cancelled, Platelet Estimate Cancelled, Plt Morphology Comment Cancelled, RBC Morphology Cancelled 02/15/24 18:27: RBC Morphology Cancelled, Polychromasia Cancelled, Hypochromasia Cancelled, Basophilic Stippling Cancelled, Anisocytosis Cancelled, Microcytosis Cancelled, Macrocytosis Cancelled, Spherocytes Cancelled, Sickle Cells Cancelled, Target Cells Cancelled, Tear Drop Cells Cancelled, Ovalocytes Cancelled, Stomatocytes Cancelled, Haley-[place] Bodies Cancelled, [place] Cells Cancelled, Bite Cells Cancelled, Crenated Cell Cancelled, Acanthocytes (Spur) Cancelled, Rouleaux Cancelled, Schistocytes Cancelled, Sodium 134 L, Potassium 4.8, Chloride 101, Carbon Dioxide 27.0, Anion Gap 6, BUN 12, Creatinine 1.14, Estim Creat Clear Calc 91.93, Est GFR (MDRD) Af Amer 84, Est GFR (MDRD) Non-Af 70, BUN/Creatinine Ratio 10.5, Glucose 110 H, Calcium 9.5, Troponin I High Sens 38 02/15/24 18:59: WBC 8.3, RBC 4.56 L, Hgb 15.0, Hct 43.9, MCV 96.3 H, MCH 32.9 H, MCHC 34.2, RDW Std Deviation 40.2, RDW Coeff of Magalie 11.4 L, Plt Count 204, MPV 8.7, Immature Gran % (Auto) 0.400, Neut % (Auto) 64.8, Lymph % (Auto) 22.3, [place] % (Auto) 7.9, Eos % (Auto) 4.1, Baso % (Auto) 0.5, Absolute Neuts (auto) 5.4, Absolute Lymphs (auto) 1.84, Nucleated RBC % 0 02/15/24 20:40: Troponin I High Sens 66 Imaging Radiology Impression Chest X-Ray 02/15/24 18:45 IMPRESSION: Normal x-ray examination of the chest. Electronically Signed: Francis Orta MD at 19:21 EDT , Assessment & Plan Assessment/Plan (1) Hypertensive urgency: (2) Exertional angina: (3) Family history of premature CAD: (4) Obesity (BMI 30-39.9): PLAN: Plan 1. Hypertensive Urgency; evidenced by initial highly elevated blood pressure of 200/82 mmHg - Admit to CDU under observation status. Continue home regimen plus give prn IV Hydralazine for systolic blood pressure > 160 mmHg. Check echocardiogram to evaluate LVEF. 2. Burning pain radiating from between his shoulder blades into his neck and jaw bilaterally with exertion greater than ~150 paces that is concerning for an 'anginal equivalent' complicating #1 - Serialize troponin. Schedule Lexiscan NST. Give NTG prn. Check d-dimer. 3. Positive family history of premature CAD in his father at age 41; with CABG x 3 compounding #1 & #2 - Noted. 4. Obesity; with BMI of 35.7 this admission - Weight loss will be recommended. Check TSH in light of #1. 5. OA - Give Tylenol prn. 6. DVT prophylaxis - Lovenox 40 mg sq daily. Total time: Approximately 75 minutes. Charges/Coding Visit Charges OBSV E&M: 74051 Observ/hosp same date L2
--- NOTE | 2024-02-15 23:43 | ECHOCS_ITS ---
Reason For Study: Chest Pain Procedure This was a 2D Doppler, Color Flow transthoracic echocardiogram. Contrast injection was performed. The study was technically difficult. Exam performed portable in patient room. Left Ventricle Normal LV size. Mild concentric left ventricular hypertrophy. The left ventricular ejection fraction is 60 %. Diastolic function is indeterminate. Right Ventricle Normal right ventricle. Atria The left and right atria are normal. Mitral Valve Trivial mitral valve insufficiency. Tricuspid Valve Trivial tricuspid valve insufficiency. Unable to estimate RV systolic pressure due to insufficient tricuspid regurgitant envelope. Aortic Valve Trisinus/trileaflet aortic valve. Pulmonic Valve The pulmonic valve is not well visualized. Great Vessels Normal sized aortic root. Pericardium/Pleural No pericardial effusion. Medication Diluted definity 2ml given slow IV push to enhance endocardial definition. MMode/2D Measurements & Calculations LVIDd: 5.6 cm IVSd: 1.2 cm Ao root diam: 3.4 cm LVIDs: 3.7 cm LVPWd: 1.0 cm RVDd: 3.8 cm FS: 33.8 % LAV(MOD-bp): 64.6 ml LVAd ap4: 32.9 cm2 SV(MOD-sp4): 70.6 ml LAV(MOD-bp) Indexed: 27.0 ml/m2 LVLd ap4: 7.6 cm LAV(MOD-sp2): 63.9 ml EDV(MOD-sp4): 115.3 ml LAV(MOD-sp4): 61.8 ml EDV(sp4-el): 120.1 ml LVAs ap4: 18.5 cm2 LVLs ap4: 6.2 cm ESV(MOD-sp4): 44.7 ml ESV(sp4-el): 47.0 ml EF(MOD-sp4): 61.2 % EF(sp4-el): 60.9 % SV(sp4-el): 73.1 ml LA A4 area: 21.9 cm2 LA dimension(2D): 3.9 cm RA A4 area: 13.9 cm2 TAPSE: 2.4 cm Time Measurements MV dec time: 0.25 sec Doppler Measurements & Calculations MV E max jose: 63.6 cm/sec Lat Peak E' Jose: 7.5 cm/sec Med Peak E' Jose: 5.7 cm/sec MV A max jose: 84.7 cm/sec E/E' lat: 8.5 E/E' med: 11.2 MV E/A: 0.75 MV dec slope: 249.9 cm/sec2 Ao V2 max: 117.2 cm/sec LV V1 max: 90.1 cm/sec Ao max P.5 mmHg LV V1 max P.2 mmHg Ao V2 mean: 90.4 cm/sec Ao mean P.5 mmHg Ao V2 VTI: 27.2 cm PA V2 max: 62.4 cm/sec ECHO/Echo Complete W/ Contrast Interpretation Summary Mild concentric left ventricular hypertrophy. The left ventricular ejection fraction is 60 %. The study was technically difficult. Ordering Physician: Ryne Parkinson Referring Physician: Ty Chairez Performed By: May Price, SEBLE, RVT
[2024-02-15 23:58] LABS: D-Dimer Quantitative (DVT/PE) < 0.27 FEU/ug/m (0.27-0.49)
[2024-02-16] VITALS (9 sets, daily range): BP systolic 122–158; BP diastolic 61–93; PULSE 62–70; RESP 12–20; TEMP 36.3–36.6; O2SAT 94–100
[2024-02-16 01:34] LABS: Troponin-I HS 56 pg/mL (3.0-78.0)
[2024-02-16 05:09] LABS: Cholesterol 217 mg/dL (200); High Density Lipoprotein 55 mg/dL; Triglycerides 120 mg/dL; Very Low Density Lipoprotein 24 mg/dL (5-40)
[2024-02-16] MEDS: Aspirin E.C. 81 MG Tablet PO (05:41)
[2024-02-16] MEDS: Losartan Potassium 50 MG Tablet PO (05:41)
[2024-02-16 09:17] LABS: Hemoglobin A1c 5.9 % (3.8-5.6)
--- NOTE | 2024-02-16 09:36 | STRESSREP_ITS ---
Stress Test Report Date: 02/16/2024 Procedure: Pharmacologic stress nuclear imaging study Indications: Chest pain Consent: Per the patient Procedure: The patient underwent pharmacologic (Regadenoson 0.4mg ) evaluation with a peak heart rate of 93 beats per minute (58%predicted maximal heart rate) and a peak blood pressure of 184/102 mmHg. The baseline ECG demonstrated sinus rhythm with occasional PVC. Nonspecific T wave changes.. The peak pharmacologic ECG demonstrated no ischemic changes. Rare PVC at baseline.. There was no complaint of chest discomfort during pharmacologic infusion or recovery. The patient was injected with 15.0 millicuries of technetium 99m Cardiolite and subsequently rest SPECT Cardiolite nuclear imaging was obtained in the horizontal long, vertical long, and short axis views. The patient underwent pharmacologic (Regadenoson) evaluation. The patient was injected with 45.0 millicuries of technetium 99m Cardiolite and subsequently stress SPECT Cardiolite nuclear imaging was obtained in the horizontal long, vertical long, and short axis views. A gated Cardiolite study at peak stress was obtained. The examination was stopped secondary to completion of protocol. Rest and stress SPECT Cardiolite nuclear imaging status post realignment, normalization, and attenuation correction demonstrate a moderate size reversible perfusion defect of the anterior wall. There is end systolic thickening and brightening. The gated Cardiolite study demonstrates myocardial thickening and inward wall motion. The reported LVEF is 57%. Impression: 1. Pharmacologic (Regadenoson) evaluation 2. Peak pharmacologic ECG with no diagnostic ischemic changes. 3. Rare PVC at baseline. 5. Moderate size reversible perfusion defect of the inferior wall suggestive of ischemia. 6. The gated Cardiolite study reports an LVEF of 57%. This note was generated with [employer] software. It may contain incorrect words, spelling, and punctuation that were not noted in checking the note before signing.
--- NOTE | 2024-02-16 09:58 | CASEMGMT ---
Tertiary facilities in-network with patient's insurance: [facility], [facility], [facility], , [facility] Ro[facility], [place], [place].
--- NOTE | 2024-02-16 10:15 | CON.PCM.CA_ITS ---
Assessment & Plan Assessment/Plan (1) Exertional angina: PLAN: New onset angina pectoris. Positive stress test. Agree with aspirin and beta-blockers. Start on clopidogrel. Start on nitrates and amlodipine. Recommend coronary angiography with possible revascularization. Risks benefits and alternatives explained to the patient. He understand these and wishes to proceed. Further recommendations after results of coronary angiography. (2) Hypertension: PLAN: Beta-blockers, ARB, nitrates and calcium channel blockers. (3) Obesity (BMI 30-39.9): PLAN: Lose weight. HPI Consult Data Date of Consult: 02/16/24 HPI Narrative Reason for Consultation: Positive stress test HPI Narrative: 59-year-old gentleman with past medical history significant for hypertension. Also family history of premature coronary artery disease. He presented to the hospital with complaints of interscapular burning sensation with exertion. According to him, there is also radiation into the neck. No associated dyspnea. No diaphoresis. Per him, the symptoms started over the last few weeks. Symptoms are precipitated with moderate exertion and relieved with rest. Denies any rest symptoms. No orthopnea. No PND. No ankle edema. No palpitations. Patient patient had a pharmacological stress test done this morning. It is positive with a moderate size reversible defect in the anterior wall. [facility] Medical History Hypertension Home Medications cyanocobalamin (vitamin B-12) 1,000 mcg tablet (Vitamin B-12) 2,000 mcg PO DAILY 02/15/24 [History Last Taken Unknown] garlic 1,000 mg capsule 2,000 mg PO DAILY 02/15/24 [History Last Taken Unknown] losartan 50 mg tablet 50 mg PO DAILY 02/15/24 [History Last Taken Unknown] omega 0-zdf-nwb-fish oil 1,200 mg (144 mg-216 mg) capsule (Fish Oil) 1 cap PO DAILY 02/15/24 [History Last Taken Unknown] phytosterol 300 mg-pantethine 100 mg capsule (CholestOff Complete) 3 cap PO DAILY 02/15/24 [History Last Taken Unknown] turmeric 400 mg capsule 800 mg PO DAILY 02/15/24 [History Last Taken Unknown] Allergy/AdvReac Type Severity Reaction Status Date / Time No Known Allergies Allergy Verified 02/15/24 16:52 Family History (Updated 02/15/24 @ 23:56 by Ita Blake) Father FH: CABG (coronary artery bypass surgery) Social History (Updated 02/15/24 @ 23:57 by Ita Blake) household members: none service: No current occupational status: employed 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 No distress. Heart sounds 1 and 2 are normal. No murmurs or rubs are noted. Chest is clear to auscultation bilaterally. Alert oriented x 3. No ankle edema. Risk Stratification Risk Stratification Applicable: No Objective Data Vital Signs: Vital Signs Temp Pulse Resp BP Pulse Ox O2 Del Method 97.7 F L 67 18 158/93 H 100 Room Air 02/16/24 10:05 02/16/24 10:02/16/24 10:02/16/24 10:02/16/24 10:02/16/24 10:11 Oxygen Delivery Method Room Air Weight: 262 lb 12.656 oz Body Mass Index (BMI) 35.6 Lab / Micro Data Attestation: I reviewed the patient's lab results. 02/15/24 18:59 02/15/24 18:27 Labs: Laboratory Results - last 24 hr 02/15/24 18:27: WBC Cancelled, Corrected WBC Cancelled, RBC Cancelled, Hgb Cancelled, Hct Cancelled, MCV Cancelled, MCH Cancelled, MCHC Cancelled, RDW Std Deviation Cancelled, RDW Coeff of Magalie Cancelled, Plt Count Cancelled, MPV Cancelled, Immature Gran % (Auto) Cancelled, Neut % (Auto) Cancelled, Lymph % (Auto) Cancelled, [place] % (Auto) Cancelled, Eos % (Auto) Cancelled, Baso % (Auto) Cancelled, Absolute Neuts (auto) Cancelled, Absolute Lymphs (auto) Cancelled, Total Counted Cancelled, Neutrophils % (Manual) Cancelled, Band Neutrophils % Cancelled, Lymphocytes % (Manual) Cancelled, Monocytes % (Manual) Cancelled, Eosinophils % (Manual) Cancelled, Basophils % (Manual) Cancelled, Metamyelocytes % Cancelled, Myelocytes % Cancelled, Promyelocytes % Cancelled, Blast Cells % Cancelled, Plasma Cell % (Manual) Cancelled, Other Cells % Cancelled, Nucleated RBC % Cancelled, Nucleated RBCs/100 WBC Cancelled, Differential Comment Cancelled, Diff Path Review Cancelled, Hypersegmented Neuts Cancelled, Atypical Lymphocytes Cancelled, Reactive Lymphocytes Cancelled, Smudge Cells Cancelled, Toxic Granulation Cancelled, Toxic Vacuolation Cancelled, Dohle Bodies Cancelled, Brett Rods Cancelled, Platelet Estimate Cancelled, Plt Morphology Comment Cancelled, RBC Morphology Cancelled 02/15/24 18:27: RBC Morphology Cancelled, Polychromasia Cancelled, Hypochromasia Cancelled, Basophilic Stippling Cancelled, Anisocytosis Cancelled, Microcytosis Cancelled, Macrocytosis Cancelled, Spherocytes Cancelled, Sickle Cells Cancelled, Target Cells Cancelled, Tear Drop Cells Cancelled, Ovalocytes Cancelled, Stomatocytes Cancelled, Haley-[place] Bodies Cancelled, [place] Cells Cancelled, Bite Cells Cancelled, Crenated Cell Cancelled, Acanthocytes (Spur) Cancelled, Rouleaux Cancelled, Schistocytes Cancelled, D-Dimer Quant (PE/DVT) < 0.27 L, Sodium 134 L, Potassium 4.8, Chloride 101, Carbon Dioxide 27.0, Anion Gap 6, BUN 12, Creatinine 1.14, Estim Creat Clear Calc 91.93, Est GFR (MDRD) Af Amer 84, Est GFR (MDRD) Non-Af 70, BUN/Creatinine Ratio 10.5, Glucose 110 H, Calcium 9.5, Troponin I High Sens 38, TSH 1.80 02/15/24 18:59: WBC 8.3, RBC 4.56 L, Hgb 15.0, Hct 43.9, MCV 96.3 H, MCH 32.9 H, MCHC 34.2, RDW Std Deviation 40.2, RDW Coeff of Magalie 11.4 L, Plt Count 204, MPV 8.7, Immature Gran % (Auto) 0.400, Neut % (Auto) 64.8, Lymph % (Auto) 22.3, [place] % (Auto) 7.9, Eos % (Auto) 4.1, Baso % (Auto) 0.5, Absolute Neuts (auto) 5.4, Absolute Lymphs (auto) 1.84, Nucleated RBC % 0, Hemoglobin A1c 5.9 H 02/15/24 20:40: Troponin I High Sens 66 02/16/24 01:01: Troponin I High Sens 56 02/16/24 04:25: Triglycerides 120, Cholesterol 217 H, LDL Cholesterol 138 H, VLDL Cholesterol 24, HDL Cholesterol 55 Rhythm Strip Rhythm Strip: Sinus Rhythm Cardiology Labs/Tests 02/15/24 18:27: WBC Cancelled, Corrected WBC Cancelled, RBC Cancelled, Hgb Cancelled, Hct Cancelled, MCV Cancelled, MCH Cancelled, MCHC Cancelled, Plt Count Cancelled, MPV Cancelled, Immature Gran % (Auto) Cancelled, Neut % (Auto) Cancelled, Lymph % (Auto) Cancelled, [place] % (Auto) Cancelled, Eos % (Auto) Cancelled, Baso % (Auto) Cancelled, Absolute Neuts (auto) Cancelled, Total Counted Cancelled, Neutrophils % (Manual) Cancelled, Band Neutrophils % Cancelled, Lymphocytes % (Manual) Cancelled, Monocytes % (Manual) Cancelled, Eosinophils % (Manual) Cancelled, Basophils % (Manual) Cancelled, Metamyelocytes % Cancelled, Myelocytes % Cancelled, Promyelocytes % Cancelled, Blast Cells % Cancelled, Plasma Cell % (Manual) Cancelled, Other Cells % Cancelled, Nucleated RBC % Cancelled, D-Dimer Quant (PE/DVT) < 0.27 L, Sodium 134 L, Potassium 4.8, Chloride 101, Carbon Dioxide 27.0, Anion Gap 6, BUN 12, Creatinine 1.14, Est GFR (MDRD) Af Amer 84, Est GFR (MDRD) Non-Af 70, BUN/Creatinine Ratio 10.5, Glucose 110 H, Calcium 9.5 02/15/24 18:59: WBC 8.3, RBC 4.56 L, Hgb 15.0, Hct 43.9, MCV 96.3 H, MCH 32.9 H, MCHC 34.2, Plt Count 204, MPV 8.7, Immature Gran % (Auto) 0.400, Neut % (Auto) 64.8, Lymph % (Auto) 22.3, [place] % (Auto) 7.9, Eos % (Auto) 4.1, Baso % (Auto) 0.5, Absolute Neuts (auto) 5.4, Nucleated RBC % 0, Hemoglobin A1c 5.9 H 02/16/24 04:25: Triglycerides 120, Cholesterol 217 H, LDL Cholesterol 138 H, VLDL Cholesterol 24, HDL Cholesterol 55 Rhythm: EKG: Sinus rhythm with T wave changes in the anteroseptal leads suggestive of ischemia. ECHO: Stress Test: Cardiac Cath: PCI: CT Surgery: Holter monitor: EPS: PPM: CXR: Chest CT Scan: Radiography Diagnostic Testing: Radiology Impression Chest X-Ray 02/15/24 18:45 IMPRESSION: Normal x-ray examination of the chest. Electronically Signed: Francis Orta MD at 19:21 EDT ,
[2024-02-16] MEDS: amLODIPine 5 MG Tablet PO (10:41)
[2024-02-16] MEDS: Clopidogrel Bisulfate 75 MG Tablet PO (10:41)
[2024-02-16] MEDS: Carvedilol 6.25 MG Tablet PO (10:42)
[2024-02-16] MEDS: Isosorbide Mononitrate 30 MG Tablet PO (10:42)
--- NOTE | 2024-02-16 11:37 | CL.D_ITS ---
Patient Name: DON ROLLINS Study Date: 02/16/2024 Performing: Rita Bocanegra MD Ht: 72 inches 182.88 cm : 1965 Wt: 262.79 lbs 119.2 kg Age: 59 Gender: male BSA: 2.39 PROCEDURE(S) PERFORMED DC02-([id number])[facility] CLINICAL PROFILE AND INDICATIONS Indications: New Onset Angina <= 2 months, Suspected CAD Heart Failure: None Angina Classification Anginal Classification w/in 2 Weeks: CCS II CAD Presentations: Stable angina. CONCLUSIONS 80% Mid LAD, 80% Prox D1; 70% ostial D2 70% Prox LCX; 90% Prox OM1 70% distal RCA; 70% ostial RPDA RECOMMENDATIONS Evaluate for CABG DESCRIPTION OF PROCEDURE The patient arrived to the procedure lab. The risks and benefits of the procedure as well as a full description of our services here and current unavailability of surgical backup were fully explained to the patient and/or their significant other prior to the catheterization. The Timeout was completed, verifying the correct patient and procedure. The patient's procedural site was prepped and draped in the usual fashion. Local anesthetic was given subcutaneously to right radial region with Lidocaine 2%. Using a modified Seldinger technique, arterial access was obtained via the right radial artery, a 6Fr sheath was inserted. Left Coronary Artery selective angiography was performed in multiple views using a 5 Fr. 4.0 [place] catheter. Right Coronary Artery selective angiography was then performed in multiple views using a 5 Fr. 4.0 [place] catheter.The arterial sheath was pulled and a TR Band was applied for hemostasis 11 ml of air CORONARY ANGIOGRAPHY DOMINANCE: Right Dominant LEFT HEART ASSESSMENT LVEDP: 6 mmHg LEFT ANTERIOR DESCENDING ARTERY: LAD: Tubular Calcified 80% Mid lesion in LAD Tubular 70% Distal lesion in LAD DIAGONAL 1: Tubular 80% Ostial lesion in DIAG1 DIAGONAL 2: Tubular 70% Ostial lesion in DIAG2 OM 1: Tubular 90% Proximal lesion in MARG1 OM 2: Tubular 90% Proximal lesion in MARG1 RIGHT CORONARY ARTERY: RCA: Tubular 70% Distal lesion in RCA RT PDA: Discrete 80% Ostial lesion in RT PDA COMPLICATIONS No Complications PROCEDURE MEDICATIONS Versed 1 mg IV Fentanyl 50 mcg IV Versed 1 mg IV Oxygen: 2 L/min via nasal cannula Heparin given IA 02/16/2024 11:08:46 Verapamil 2.5mg, Ntg 200mcgs, 2000 units of Heparin given IA 02/16/2024 11:08:46 IV Bolus: .9 NaCl 250 ml total 02/16/2024 11:05:23 SUMMARY OF HEMODYNAMIC DATA Time AIR REST ECG 10:55:03 AO 107/64 (81) SA 11:10:34 AO 116/74 (91) 11:10:59 LV 118/3, 6 11:14:34 11:29:54 Signed By Rita Bocanegra MD On 02/16/2024 11:36:57 Rita Bocanegra MD
--- NOTE | 2024-02-16 13:23 | CASEMGMT ---
RN CM Face to Face with patient for initial transition planning/care coordination assessment. RN CM introduced self and role at [facility]. Patient lying in bed, alert and oriented, family at bedside. Patient willing to participate in assessment and is able to answer all questions appropriately. Care providers, pharmacy, and demographics verified. PCP: Mihaela Specialists: none [facility]erred [facility]acy: [facility] Insurance: [employer] Prescription Benefit: yes Living Will/HPOA: none LNOK: mother, brother Living Arrangements: Patient lives alone in a bi-level home with 3 steps and railing between levels. Patient is independent and able to ambulate stairs. Transportation: self, mother, brother DME/HHC: Patient denies DME in the home. No previous HHC Or SNF Patient wishes to discharge home, denies need for home health at this time. Patient states he has no further needs or concerns at this time. CM to follow for discharge planning needs that may arise. Disposition Plan: Patient transferring to [facility], awaiting bed Vannessa TEMPLETON, RN, CM
--- NOTE | 2024-02-16 13:29 | DS.PCM_ITS ---
Providers Date of Admission: 02/16/24 Date of Discharge: 02/16/24 Primary Care Physician: Dr. Ty Chairez, Consultations 02/16/24 09:52 Consult: Cardiology Routine Consulting Provider: Rita Bocanegra Reason for Consult: cad EMERGENT Consult: No MD Notified: Yes Date Notified: 02/16/24 Time Notified: 09:52 Method of Notification: Verbal Reason For Visit: UNSTABLE ANGINA Diagnosis Discharge Diagnosis (1) Exertional angina: Status: Acute Code(s): I20.89 - Other forms of angina pectoris (2) Hypertension: Status: Chronic Code(s): I10 - Essential (primary) hypertension (3) Obesity (BMI 30-39.9): Status: Acute Code(s): E66.9 - Obesity, unspecified Medications at Discharge Home Medications cyanocobalamin (vitamin B-12) 1,000 mcg tablet (Vitamin B-12) 2,000 mcg PO DAILY 02/15/24 garlic 1,000 mg capsule 2,000 mg PO DAILY 02/15/24 losartan 50 mg tablet 50 mg PO DAILY 02/15/24 omega 9-agd-pgy-fish oil 1,200 mg (144 mg-216 mg) capsule (Fish Oil) 1 cap PO DAILY 02/15/24 phytosterol 300 mg-pantethine 100 mg capsule (CholestOff Complete) 3 cap PO DAILY 02/15/24 turmeric 400 mg capsule 800 mg PO DAILY 02/15/24 Hospital Course Operations None Procedures 2-D Echocardiogram, Cardiac catheterization, EKG, Stress test and - (Chest x- ray) Summary of Care Provided Minutes Spent on Discharge: 38 Hospital Course: Mr. Dhillon is a 59-year-old white male who presented to the emergency department at [facility] on 02/15/2024 complaining of back pain that radiated into his neck and jaw with exertion. Patient has a very strong family history of premature coronary artery disease. His father was diagnosed at 41 and had a CABG x 3. The patient reports that he is been having the symptoms as noted above predominantly with exertion. His symptoms began approximately 5 days prior to admission with the abrupt onset of intermittent burning sensation between his shoulder blades that radiated into his neck and jaw bilaterally. Since that point in time it had been consistently triggered by walking approximately 150 paces and then after about 10 minutes of rest his symptoms had been completely resolving. He denied any associated nausea or diaphoresis or any significant shortness of breath. Vital signs on presentation demonstrated a temperature of 98, heart rate 90, respiratory was 14 and blood pressure was 200/99 with a repeat at 192/87. Oxygen saturation was 98% on room air. His CBC was unremarkable. D-dimer was less than 0.27. His chemistry panel was overtly unremarkable other than some mild hyperglycemia with a glucose of 110. I obtained a hemoglobin A1c which was found to be 5.9. Troponin was cycled with the initial being 38--> 66--> 56. Cholesterol panel was obtained and his total cholesterol was 217/LDL 138/HDL 55 and triglycerides 120. TSH was normal at 1.8 . An echocardiogram was performed and showed an EF of 60% with mild concentric LVH but was otherwise unremarkable. He was taken for stress test on the a.m. of 02/16/2024 and found to have a moderate size reversible perfusion defect of the inferior wall that was suggestive of ischemia. Cardiology was consulted and he was taken to the [facility] where he was found to have 80s percent mid LAD, 80% pr oximal D1, 70% ostial D2, 70% proximal LCx, 90% proximal OM1, 70% distal RCA and 70% ostial RPDA disease and evaluation for CABG was recommended. Cardiology called Dr. Doran at [facility] and discussed the case with him and he is excepted for admission. While he was hospitalized he was maintained on his home losartan which was 50 mg daily. Coreg 6.125 mg was added and he was started on aspirin 81 mg daily as well as atorvastatin 80 mg daily. A bed became available at [facility] on 02/16/2024 and he was able to be transferred by ambulance in stable condition. Discharge diagnoses: Multivessel coronary artery disease Hypertension Hyperlipidemia Insulin resistance-hemoglobin A1c 5.9 Obesity Osteoarthritis Family history of premature coronary disease Physical Exam Const alert, oriented x3, no apparent distress and well nourished; Negative for average body habitus or no limitations Constitutional Narrative: Obese, middle-aged, white male, sitting up in bed, multiple family members at bedside, currently appears comfortable and nontoxic General Appearance: cooperative, comfortable, well kempt and well developed Orientation / Consciousness: awake, oriented to person, oriented to place and oriented to time Exam Limitations: no limitations Nutritional Appearance: obese HEENT normocephalic, hearing grossly normal bilaterally and moist oral mucous membranes HEENT Narrative: Mallampati 3, no thrush Eyes PERRL, EOMs intact bilaterally and conjunctivae normal Eyes Narrative: No scleral icterus Neck no lymphadenopathy and supple Neck Narrative: Trachea midline, no thyroid enlargement Resp normal respiratory effort, no retractions, no use of accessory muscles and clear to auscultation bilaterally Auscultation: Negative for rales, rhonchi or wheezes Cardio regular rate, regular rhythm, S1 normal heart sound, S2 normal heart sound, no murmurs, no rub, no gallops and no clicks GI normal to inspection, nondistended, normoactive bowel sounds, soft to palpation and non-tender Extremity no clubbing, cyanosis or edema Extremity Narrative: Pedal pulses are 2+ bilaterally, right radial artery compression device in place status post cardiac catheterization with good cap refill in the hand, left radial pulse is 2+ Skin no rashes or lesions noted, no wounds, skin turgor normal and no jaundice Neuro oriented x3, CN's II-XII intact bilaterally, moves all extremities and no focal motor deficits Speech: speech normal Psych affect normal Psych Narrative: Eye contact is good, patient answers all questions appropriately, asking questions, very pleasant Weight / BMI Weight Weight: 119.2 kg Body Mass Index (BMI) 35.6 ABG / Lab / Microbiology Data 02/15/24 18:59 02/15/24 18:27 Laboratory: Laboratory Results - last 24 hr 02/15/24 18:27: WBC Cancelled, Corrected WBC Cancelled, RBC Cancelled, Hgb Cancelled, Hct Cancelled, MCV Cancelled, MCH Cancelled, MCHC Cancelled, RDW Std Deviation Cancelled, RDW Coeff of Magalie Cancelled, Plt Count Cancelled, MPV Cancelled, Immature Gran % (Auto) Cancelled, Neut % (Auto) Cancelled, Lymph % ( Auto) Cancelled, Cross % (Auto) Cancelled, Eos % (Auto) Cancelled, Baso % (Auto) Cancelled, Absolute Neuts (auto) Cancelled, Absolute Lymphs (auto) Cancelled, Total Counted Cancelled, Neutrophils % (Manual) Cancelled, Band Neutrophils % Cancelled, Lymphocytes % (Manual) Cancelled, Monocytes % (Manual) Cancelled, Eosinophils % (Manual) Cancelled, Basophils % (Manual) Cancelled, Metamyelocytes % Cancelled, Myelocytes % Cancelled, Promyelocytes % Cancelled, Blast Cells % Cancelled, Plasma Cell % (Manual) Cancelled, Other Cells % Cancelled, Nucleated RBC % Cancelled, Nucleated RBCs/100 WBC Cancelled, Differential Comment Cancelled, Diff Path Review Cancelled, Hypersegmented Neuts Cancelled, Atypical Lymphocytes Cancelled, Reactive Lymphocytes Cancelled, Smudge Cells Cancelled, Toxic Granulation Cancelled, Toxic Vacuolation Cancelled, Dohle Bodies Cancelled, Brett Rods Cancelled, Platelet Estimate Cancelled, Plt Morphology Comment Cancelled, RBC Morphology Cancelled 02/15/24 18:27: RBC Morphology Cancelled, Polychromasia Cancelled, Hypochromasia Cancelled, Basophilic Stippling Cancelled, Anisocytosis Cancelled, Microcytosis Cancelled, Macrocytosis Cancelled, Spherocytes Cancelled, Sickle Cells Cancelled, Target Cells Cancelled, Tear Drop Cells Cancelled, Ovalocytes Cancelled, Stomatocytes Cancelled, [place] Bodies Cancelled, [place] Cells Cancelled, Bite Cells Cancelled, Crenated Cell Cancelled, Acanthocytes (Spur) Cancelled, Rouleaux Cancelled, Schistocytes Cancelled, D-Dimer Quant (PE/DVT) < 0.27 L, Sodium 134 L, Potassium 4.8, Chloride 101, Carbon Dioxide 27.0, Anion Gap 6, BUN 12, Creatinine 1.14, Estim Creat Clear Calc 91.93, Est GFR (MDRD) Af Amer 84, Est GFR (MDRD) Non-Af 70, BUN/Creatinine Ratio 10.5, Glucose 110 H, Calcium 9.5, Troponin I High Sens 38, TSH 1.80 02/15/24 18:59: WBC 8.3, RBC 4.56 L, Hgb 15.0, Hct 43.9, MCV 96.3 H, MCH 32.9 H, MCHC 34.2, RDW Std Deviation 40.2, RDW Coeff of Magalie 11.4 L, Plt Count 204, MPV 8.7, Immature Gran % (Auto) 0.400, Neut % (Auto) 64.8, Lymph % (Auto) 22.3, Cross % (Auto) 7.9, Eos % (Auto) 4.1, Baso % (Auto) 0.5, Absolute Neuts (auto) 5.4, Absolute Lymphs (auto) 1.84, Nucleated RBC % 0, Hemoglobin A1c 5.9 H 02/15/24 20:40: Troponin I High Sens 66 02/16/24 01:01: Troponin I High Sens 56 02/16/24 04:25: Triglycerides 120, Cholesterol 217 H, LDL Cholesterol 138 H, VLDL Cholesterol 24, HDL Cholesterol 55 Radiography Diagnostic Testing: Radiology Impression Chest X-Ray 02/15/24 18:45 IMPRESSION: Normal x-ray examination of the chest. Electronically Signed: Francis Orta MD at 19:21 EDT , Echocardiogram 02/15/24 23:43 Interpretation Summary Mild concentric left ventricular hypertrophy. The left ventricular ejection fraction is 60 %. The study was technically difficult. Ordering Physician: Ryne Parkinson Referring Physician: Ty Chairez Performed By: May Price, SEBLE, RVT Meaningful Use Info Meaningful Use Meaningful Use Diagnoses (Choose all that apply): None applicable Ischemic Stroke Statin Dosing Therapy Reference: STATIN DOSE THERAPY REFERENCE: * Patients > 75 years receive moderate or high dose statin therapy. * Patients 75 years or YOUNGER should receive HIGH intensity statin dose unless contraindicated. You will be required to document reason for non-treatment if statin daily dose does not meet guidelines. HIGH DOSE STATIN THERAPY DAILY Atorvastatin > than or = to 40 mg Rosuvastatin > than or = to 20 mg Amlodipine + Atorvastatin > than or = to 2.5/40 mg Ezetimibe + Simvastatin 10/80 mg Simvastatin 80mg Discharge Plan Admission Admit Date/Time: 02/16/24 11:24 Primary Reason for Your Visit: Chest pain Attending Provider: Laura Swain Primary Care Provider: Ty Chairez Consulting Providers: Ryne Parkinson; Rita Bocanegra Discharge Orders/Prescriptions Prescriptions: No Action losartan 50 mg tablet 50 mg PO DAILY omega 0-xad-yuz-fish oil [Fish Oil] 1,200 (144-216) mg capsule 1 cap PO DAILY garlic 1,000 mg capsule 2,000 mg PO DAILY turmeric 400 mg capsule 800 mg PO DAILY cyanocobalamin (vitamin B-12) [Vitamin B-12] 1,000 mcg tablet 2,000 mcg PO DAILY CholestOff Complete 300-100 mg capsule 3 cap PO DAILY Referrals / Follow Up: Ty Chairez DO [Primary Care Provider] - Disposition Disposition (needs filled in before D/C Order can be placed): Acute Care Hospital Charges/Coding Visit Charges Inpatient E&M: 65156 Disch Hosp >30min
== END 2024-02-16 14:48 | disposition short-term general hospital (02) | DRG 287 ==
LOC: ED 22:04 → PCU 23:29
PROVIDERS: Admitting Provider Internal Medicine; Emergency Provider Emergency Medicine; PCP Student in an Organized Health Care Education/Training Program; Visit Provider Internal Medicine
DX: I25.118 Atherosclerotic heart disease of native coronary artery with other forms of angina pectoris (principal); E88.819 Insulin resistance, unspecified; I16.0 Hypertensive urgency; I10 Essential (primary) hypertension; M19.90 Unspecified osteoarthritis, unspecified site; E78.5 Hyperlipidemia, unspecified; E66.9 Obesity, unspecified; R73.9 Hyperglycemia, unspecified; Z68.35 Body mass index [BMI] 35.0-35.9, adult
CPT/HCPCS: 36415; 71046; 78452; 80048; 80061; 83036; 84443; 84484; 85025; 85379; 93005; 93017; 93306; 93454; 99152; 99153; 99285; A9500; J7040; Q9957; A4216; C1769; C1894; C8929; J2785; Q9967